=== PATIENT | male | born 1950 | race Caucasian/White ===

== ENCOUNTER 2016-08-19 15:53 | Emergency (ER) | payer MEDICARE, OTHER ==
[2016-08-19] MEDS ORDERED: guaiFENesin/CODEINE 5 ML UDC PO STA (16:36)
[2016-08-19] MEDS ORDERED: ALBUTEROL NEB 2.5 MG/3 ML INH STA (16:36)
[2016-08-19] MEDS ORDERED: guaiFENesin/CODEINE 5 ML UDC ONE (16:39)
[2016-08-19] MEDS ORDERED: ALBUTEROL NEB 2.5 MG/3 ML INH ONE (16:47)
== END 2016-08-19 17:14 | disposition home or self-care (01) ==
DX: J06.9 Acute upper respiratory infection, unspecified (principal); B97.89 Other viral agents as the cause of diseases classified elsewhere; R03.0 Elevated blood-pressure reading, without diagnosis of hypertension; G47.30 Sleep apnea, unspecified; Z79.82 Long term (current) use of aspirin; Z87.891 Personal history of nicotine dependence
CPT/HCPCS: 71020; 94640; 99283; A9270; J7613

== ENCOUNTER 2017-03-03 12:51 | Day surgery (SDC) | payer MEDICARE, OTHER ==
--- NOTE | 2017-03-03 08:30 | SURGERY HX AND PHYSICAL(T) ---
Surgical History & Physical - PMH/PSH/Social Hx Does the pt have a hx of MRSA?: No Neurological History: None Eyes, Ears, Nose, Throat: Other Cardiovascular: Atrial fibrillation, Arrhythmia Respiratory: Pneumonia, Sleep apnea, CPAP use Skin: None Endocrine/Autoimmune: None Gastrointestinal: GERD, Other Urinary: Benign prostate hypertrophy Musculoskeletal: None Blood Disorders: None Psychiatric: Depression, Post traumatic stress disorder, Claustrophobia General: Bowel surgery, Colonoscopy, Other Cardiothoracic: Other Smoking Status: Former smoker Does the pt drink ETOH?: No Does the pt have substance abuse?: No - Home Meds and Allergies Home Medications: Aspirin 81 mg ORAL DAILY 10/04/13 Esomeprazole [NexIUM] 40 mg ORAL DAILY 08/19/16 diltiaZEM [Cardizem] 180 mg ORAL DAILY 08/19/16 raNITIdine [Zantac] 150 mg ORAL DAILY 08/19/16 Allergies/Adverse Reactions: Allergies Allergy/AdvReac Type Severity Reaction Status Date / Time metoclopramide HCl * Allergy Severe Hallucinati Verified 08/19/16 15:55 [From Reglan] ons - Vital Signs Height: 1.83 m - Patient Review Patient Review: Problems were reviewed with the patient during this visit. Medications were reviewed with the patient during this visit. Allergies were reviewed this patient during this visit. Pertinent Tests Reviewed: All pertitent test for this patient were reviewed. - Assessment & Plan Assessment and Plan: This patient was initially seen on January 02 for the exact same reasons. Because more than 30 days were allowed to elapse between the time of the history and physical on the time of the procedure this update history and physical/repeat history and physical are mandated. The following narrative was reviewed with the patient verbatim and there are no substantive changes. The [facility] sends this very pleasant 66 year-old male to my office in consultation for the aforementioned reasons. He describes his bowel movements as regular and normal. He denies nausea, vomiting, constipation, diarrhea, melena, hematochezia, hematemesis, unexplained weight loss, or change in the color, character or caliber of his stool. He denies dysphagia, odynophagia, dysphasia, or GERD. He had a colon resection in 1998 for colon cancer in his previous EGD and colonoscopy was in July 2007. An antral polyp and a small bowel polyp were both resected but I do not have the pathology report. The abdominal pain that the patient's been having is been hard to characterize and is not related to any one thing. (Position, diet, bowel movements). Allergies: REGLAN (Critical) Current Meds: GOLYTELY 236 GM ORAL SOLR (PEG [id number]) Take as directed, by surgery clinic FLOMAX 0.4 MG CAPS (TAMSULOSIN HCL) Take one capsule by mouth daily OMEPRAZOLE 20 MG CPDR (OMEPRAZOLE) Take one capsule by mouth daily RANITIDINE HCL 150 MG TABS (RANITIDINE HCL) take one tablet by mouth every evening LORATADINE 10 MG TABS (LORATADINE) Take one tablet by mouth daily as needed for allergies ASPIRIN EC 81 MG TBEC (ASPIRIN) Take one tablet by mouth daily ATORVASTATIN CALCIUM 40 MG ORAL TABS (ATORVASTATIN CALCIUM) Take 1 tab by mouth daily DILTIAZEM HCL ER BEADS 180 MG CP24 (DILTIAZEM HCL ER BEADS) Take one capsule by mouth daily Past Medical History: Irregular heartbeat sleep apnea/CPAP use Freguent indigestion heartburn Acid Reflux Hiatal Hernia Depression Anxiety Panic Attacks Claustrophobia Past Surgical History: Colon Resection 1998 Family History Summary: Mother (gaston.) - Has Family History of Heart Disease - Entered On: 01/02/2017 Risk Factors: Smoked Tobacco Use: Former smoker Cigarettes: Yes Year quit: 1977 Years Since Last Quit: 40 Drug use: no Alcohol use: no Exercise: yes Times per week: 3 Type of Exercise: Treadmill Review of Systems CONSTITUTIONAL: No weight loss, fever, chills, weakness or fatigue. HEENT: Eyes: No visual loss, blurred vision, double vision or yellow sclerae. Ears, Nose, Throat: No hearing loss, sneezing, congestion, runny nose or sore throat. SKIN: No rash or itching. CARDIOVASCULAR: No chest pain, chest pressure or chest discomfort. No palpitations or edema. RESPIRATORY: No shortness of breath, cough or sputum. GASTROINTESTINAL: No anorexia, nausea, vomiting or diarrhea. No abdominal pain or blood. GENITOURINARY: No dysuria. No impotence. NEUROLOGICAL: No headache, dizziness, syncope, paralysis, ataxia, numbness or tingling in the extremities. No change in bowel or bladder control. MUSCULOSKELETAL: No muscle, back pain, joint pain or stiffness. HEMATOLOGIC: No anemia, bleeding or bruising. LYMPHATICS: No enlarged nodes. No history of splenectomy. PSYCHIATRIC: No history of depression or anxiety. ENDOCRINOLOGIC: No reports of sweating, cold or heat intolerance. No polyuria or polydipsia. ALLERGIES: No history of asthma, hives, eczema or rhinitis. Physical Exam General: 66-year old male, appears stated age, well developed, well nourished Vitals: Please refer to nurses note. HEENT: Normocephalic, atraumatic, extraocular movement intact, mucous membranes pink and moist, sclera anicteric and not injected Neck: Supple without pain on palpation, mass or bruit Cardiac: Regular rate and rhythm without rub, gallop, or murmur Chest: Clear to auscultation bilaterally Abdomen: Soft, nontender, normoactive bowel sounds, no hepatomegaly, no splenomegaly, wound healed nicely without evidence of herniation Genitourinary: Deferred Rectal: Deferred until colonoscopy Extremities: No gross neurovascular problem, no clubbing, cyanosis or edema Gait: Not evaluated. Psychiatric: Alert and oriented to person place and time, asks and answers questions appropriately, mood and affect appropriate Impression & Recommendations: Esophagogastroduodenoscopy with possible biopsies and/or polypectomies and screening colonoscopy with possible biopsies and/or polypectomies. Indications , procedure, alternatives (such as barium enema, Cologuard and even no procedure at all) and risks including but not limited to perforation requiring operative repair, bleeding with its risks, and were fully explained to him. In the office, I epi diagrams explaining the colonic anatomy and the proposed procedure and handed it to him. In the office, conscious sedation was discussed at length with him as were its risks including but not limited to loss of airway, aspiration, respiratory depression, and not enough relief of pain and anxiety and he indicated that he wished to have conscious sedation for his procedure. In the office, I explained that MAC anesthesia is associated with a higher incidence of colon perforation. Review of his history does not reveal any significant systemic disease that would contraindicate use of conscious sedation or MAC anesthesia. All questions were fully answered. Verbal and written consent was obtained. The patient in preparation for his colonoscopy has been n.p.o. and his colon has been mechanically prepped. 20 minutes of [id number] time spent with the patient the majority of which was spent in discussion and in the generation of this document
[2017-03-03] MEDS ORDERED: LACTATED RINGERS 1,000 ML IV ONE (13:26)
[2017-03-03] MEDS ORDERED: fentaNYL 100 MCG/2 ML VIAL IVP ONE (13:55)
[2017-03-03] MEDS ORDERED: MIDAZOLAM 2 MG/2 ML VIAL IVP ONE (13:55)
[2017-03-03] MEDS ORDERED: LIDO GARGLE 30 ML BOTTLE PO ONE (14:05)
[2017-03-03] MEDS ORDERED: BENZOCAINE/TETRACAINE/BUTAMBEN SPRAY 56 GM TOP ONE (14:05)
[2017-03-03 15:22] VITALS: BP 106/65
== END 2017-03-03 12:52 | disposition home or self-care (01) ==
LOC: SDS 12:51
PROVIDERS: ATTEND Surgery
PROC: 0DJD8ZZ Inspection of Lower Intestinal Tract, Via Natural or Artificial Opening Endoscopic (ICD-10-PCS; principal; 2017-03-03 14:00)
PROC: 0DJ08ZZ Inspection of Upper Intestinal Tract, Via Natural or Artificial Opening Endoscopic (ICD-10-PCS; 2017-03-03 14:00)
DX: Z85.038 Personal history of other malignant neoplasm of large intestine (principal); K64.8 Other hemorrhoids; G47.30 Sleep apnea, unspecified; Z79.82 Long term (current) use of aspirin; I48.91 Unspecified atrial fibrillation; K21.9 Gastro-esophageal reflux disease without esophagitis; Z87.891 Personal history of nicotine dependence; Z90.49 Acquired absence of other specified parts of digestive tract; Z82.49 Family history of ischemic heart disease and other diseases of the circulatory system
CPT/HCPCS: 43235; 45378; A9270; J7120

== ENCOUNTER 2018-11-12 16:17 | Outpatient (CLI) | payer MEDICARE, OTHER ==
--- NOTE | 2018-11-13 10:24 | MRI Report ---
Reason: PAIN IN RIGHT FOOT Procedure Date: 11/12/2018 Accession Number: [id number] / [id number] Procedure: MRI - Ankle RT W/O CPT Code: FULL RESULT: EXAM: RIGHT ANKLE/HINDFOOT MRI WITHOUT CONTRAST EXAM DATE: 11/12/2018 06:03 PM. CLINICAL HISTORY: Pain in right foot. COMPARISON: None. TECHNIQUE: Multiplanar, multisequence T1-weighted and fluid-sensitive sequences of the ankle/hindfoot without contrast. Other: None. FINDINGS: Bones and articular surfaces: Old healed fracture of the distal fibula. Small ankle joint effusion. There are parallel perfectly linear cartilage defects running from anterior to posterior at the superior aspect of the tibiotalar joint. More pronounced cartilage thinning with subchondral edema at the anteromedial aspect of the medial tibial plafond. Focal subchondral edema at the lateral dome of the talus. Small amount of subchondral edema at the lateral malleolus anteriorly. Pronounced subchondral edema and subchondral cyst formation at the proximal aspect of the fourth metatarsal and at the distal aspect of the middle cuneiform at the second and fourth tarsometatarsal articulations. Mild subchondral marrow changes at the navicular medial cuneiform articulation as well as the cuboid articulation with the fifth metatarsal. Musculotendinous structures: The Achilles tendon and plantar fascia appear intact. Small volume of fluid associated with the flexor hallucis longus tendon. Mild thickening and increased signal involving the tibialis posterior. Remaining anterior, posterior and posterior lateral ankle tendons appear intact. No significant muscle atrophy or fatty replacement. Ligaments: The anterior and posterior talofibular, calcaneofibular and deltoid ligaments appear intact. IMPRESSION: 1. 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 2. Small ankle joint effusion. 3. Mild tibialis posterior tendinosis. 4. Mild flexor hallucis longus tenosynovitis. 5. Parallel straight linear cartilage defect in the weightbearing tibiotalar joint. Correlate with any previous surgery. RADIA
== END 2018-11-12 16:18 | disposition home or self-care (01) ==
LOC: DI 16:17
PROVIDERS: ATTEND Family Medicine
DX: M19.071 Primary osteoarthritis, right ankle and foot (principal); M25.471 Effusion, right ankle; M65.871 Other synovitis and tenosynovitis, right ankle and foot; M94.8X7 Other specified disorders of cartilage, ankle and foot

== ENCOUNTER 2019-08-03 08:56 | Emergency (ER) | payer MEDICARE, OTHER ==
--- NOTE | 2019-08-03 09:39 | ED Physician Documentation ---
PD HPI UPPER EXT INJURY - Stated complaint Stated Complaint: R WRIST INJ - Chief complaint Chief Complaint: Trauma Ext - History obtained from History obtained from: Patient - History of Present Illness Location: Right, Wrist Type of injury: Fall Where injury occurred: Home Timing - onset: Today Timing - duration: Hours (5) Timing - details: Abrupt onset Improved by: Immobilization Worsened by: Moving, Palpating Associated symptoms: Swelling. No: Weakness, Numbness, Tingling, Discolored Contributing factors: No: Anticoagulated Recently seen: Not recently seen - Additonal information Additional information: This is a 68-year-old man who presents with complaints he got up to go to the bathroom last night he tripped on the carpet falling forward onto his outstretched right wrist. This was about 4:30 in the morning. He had a pain immediate pain in the wrist but did not want awake anybody else up so he waited until the household was up to come in. He did not do anything for the pain at home. Denies elbow or shoulder pain did not hit his head. He is not on blood thinners. He is right-handed. The patient also is complaining of some burning with urination that started yesterday and he has a history of urinary tract infections in the past. He was started on a prostate medication to help his u rine flow but he does not think he is getting a lot of relief of it. Review of Systems : denies: Dysuria Musculoskeletal: reports: Extremity pain Neurologic: denies: Numbness PD PAST MEDICAL HISTORY - Past Medical History Cardiovascular: Atrial fibrillation, Arrhythmia Respiratory: Pneumonia, Sleep apnea, CPAP use Endocrine/Autoimmune: None GI: GERD, Other : Benign prostate hypertrophy HEENT: Other Psych: Depression, Post traumatic stress disorder, Claustrophobia Musculoskeletal: None Derm: None - Past Surgical History Past Surgical History: Yes General: Bowel surgery, Colonoscopy, Other Cardiovascular: Other - Present Medications Home Medications: Ambulatory Orders Medication Instructions Recorded Confirmed Aspirin 81 mg ORAL DAILY 10/04/13 08/19/16 Esomeprazole [NexIUM] 40 mg ORAL DAILY 08/19/16 08/19/16 diltiaZEM [Cardizem] 180 mg ORAL DAILY 08/19/16 08/19/16 raNITIdine [Zantac] 150 mg ORAL DAILY 08/19/16 08/19/16 - Allergies Allergies/Adverse Reactions: Allergies Allergy/AdvReac Type Severity Reaction Status Date / Time metoclopramide HCl * Allergy Severe Hallucinati Verified 08/03/19 09:11 [From Regzenon] ons - Social History Does the pt smoke?: No Smoking Status: Former smoker Does the pt drink ETOH?: No Does the pt have substance abuse?: No - Immunizations Immunizations are current?: Yes - POLST Patient has POLST: No PD ED PE NORMAL - Vitals Vital signs reviewed: Yes - General General: Alert and oriented X 3, No acute distress, Well developed/nourished - HEENT HEENT: Atraumatic - Derm Derm: Normal color, Warm and dry, No rash - Extremities Extremities: Other (Swelling to the dorsal right wrist. Is limited flexion due to pain. There is tenderness across the dorsal aspect of the wrist but not any specific point tenderness. He is able to make a fist and abduct the pinky and thumb. Sensations intact light touch in the digits and capillary refills less than 2 seconds. He has a 2+ radial pulse.) - Neuro Neuro: No motor deficit, No sensory deficit - Psych Psych: Normal mood, Normal affect Results - Vitals Vitals: Vital Signs - 24 hr 08/03/19 09:11 Temperature 37 C Heart Rate 78 Respiratory 18 Rate Blood Pressure 141/88 H O2 Saturation 98 Oxygen O2 Source Room air - Labs Labs: Laboratory Tests 08/03/19 09:32 Urine Color YELLOW Urine Clarity CLEAR Urine pH 6.5 Ur Specific [place] 1.025 Urine Protein NEGATIVE Urine Glucose (UA) NEGATIVE Urine Ketones NEGATIVE Urine Occult Blood NEGATIVE Urine Nitrite NEGATIVE Urine Bilirubin NEGATIVE Urine Urobilinogen 0.2 (NORMAL) Ur Leukocyte Esterase NEGATIVE Ur Microscopic Review NOT INDICATED Urine Culture Comments NOT INDICATED - Rads (name of study) r wrist Radiology: EMP read indepedently, EMP read contemporaneously (sm calcification noted adjacent to dist radius on lat film only.) PD MEDICAL DECISION MAKING - ED course Complexity details: reviewed results, d/w patient ED course: Urinalysis is negative for any infection and this was discussed with the patient. His imaging was discussed at this time I am not sure if this is a calcification in the ligament are actually a small avulsion fracture that I am seeing on the lateral film. He is placed in a splint for comfort. Instructed to ice the wrist take ibuprofen or Tylenol for pain. Follow-up with his primary care provider for reevaluation in 12 to 14 days particularly if this is not improving. Departure - Departure Disposition: 01 Home, Self Care Clinical Impression: Dysuria Sprain of wrist, right Qualifiers: Encounter type: initial encounter Qualified Code(s): S63.501A - Unspecified sp rain of right wrist, initial encounter Condition: Good Instructions: ED Sprain Wrist, ED Splint Care Velcro Follow-Up: LUIS MANUEL Morrison [Provider Group] STEVE BANUELOS [Primary Care Provider] - Comments: Wear the splint at all times unless you are bathing or washing her hands. Ice and elevate the wrist to help control pain. Take Tylenol or ibuprofen if needed for pain. Follow-up with your primary care provider in 12 to 14 days particularly if this is not improving.
[2019-08-03 09:49] LABS: BILIRUBIN,URINE NEGATIVE (NEGATIVE); GLUCOSE, URINE (UA) NEGATIVE (NEGATIVE); KETONES,URINE (UA) NEGATIVE (NEGATIVE); LEUKOCYTE ESTERASE, URINE NEGATIVE (NEGATIVE); NITRITE,URINE NEGATIVE (NEGATIVE); OCCULT BLOOD,URINE NEGATIVE (NEGATIVE); PH,URINE 6.5 PH (5.0-7.5); PROTEIN,URINE NEGATIVE (NEGATIVE); UROBILINOGEN,URINE 0.2 (NORMAL) E.U./dL (NORMAL)
[2019-08-03 09:50] LABS: CLARITY,URINE CLEAR (CLEAR)
--- NOTE | 2019-08-03 10:05 | XRAY Report ---
Reason: wrist pain Procedure Date: 08/03/2019 Accession Number: [id number] / [id number] Procedure: XR - Wrist 3 View RT CPT Code: Final Report FULL RESULT: EXAM: RIGHT WRIST RADIOGRAPHY EXAM DATE: 08/03/2019 09:40 AM. CLINICAL HISTORY: Wrist pain. Fall onto outstretched hand. COMPARISON: None. TECHNIQUE: 3 views. FINDINGS: Bones: Normal. No fractures or bone lesions. Joints: No subluxation or dislocation. There are mild degenerative changes at the first carpometacarpal joint and first metacarpophalangeal joint. Soft Tissues: Unremarkable. No focal soft tissue swelling appreciated. IMPRESSION: 1. No fracture or other acute osseous abnormality of the wrist. 2. Mild degenerative osteoarthritis at the first carpal metacarpal joint and first metacarpophalangeal joint. RADIA
[2019-08-03 10:17] VITALS: BP 143/85
== END 2019-08-03 10:14 | disposition home or self-care (01) ==
LOC: ED 08:56
DX: S63.501A Unspecified sprain of right wrist, initial encounter (principal); W01.0XXA Fall on same level from slipping, tripping and stumbling without subsequent striking against object, initial encounter; Y93.01 Activity, walking, marching and hiking; Y92.009 Unspecified place in unspecified non-institutional (private) residence as the place of occurrence of the external cause; R30.0 Dysuria; Z87.891 Personal history of nicotine dependence
CPT/HCPCS: 81001; 81003; 87086; 99284

== ENCOUNTER 2020-09-13 01:43 | Emergency (ER) | payer MEDICARE, OTHER ==
--- NOTE | 2020-09-13 01:57 | ED Physician Documentation ---
PD HPI MALE - Stated complaint Stated Complaint: MALE , UPPER L LEG PX - Chief complaint Chief Complaint: General - History obtained from History obtained from: Patient - History of Present Illness Timing - onset: How many weeks ago (2) Timing - duration: Weeks (2) Timing - details: Gradual onset (onset of lower abd pain and cramps with dysuria 2 weeks ago. Rx with abx (sounds like Bactrim) and not improved. CHanged to CIpro. LEss dysuria, but still pelvic/lower abd pains. Having pain radiate to left thigh now too. No scrotal swelling.), Still present, Waxing and waning Associated symptoms: Dysuria, Urinary frequency, Abdominal pain. No: Hematuria, Discharge, Genital sore / lesion, Testiclar pain, Scrotal swelling PD HPI MALE CONTRIB FACTORS: No: Sexually active, Exposed to STD Similar symptoms before: Has not had sx before Recently seen: Clinic (Rx ? Bactrim for UTI, then change to Cipro, and now just started AUgmentin 2 days ago.) Review of Systems Constitutional: denies: Fever, Chills Nose: denies: Rhinorrhea / runny nose, Congestion Throat: denies: Sore throat Respiratory: denies: Cough GI: reports: Abdominal Pain. denies: Nausea, Vomiting, Diarrhea : denies: Dysuria, Frequency, Discharge Skin: denies: Rash, Lesions Neurologic: denies: Generalized weakness, Near syncope PD PAST MEDICAL HISTORY - Past Medical History Cardiovascular: Atrial fibrillation, Arrhythmia Respiratory: Pneumonia, Sleep apnea, CPAP use Endocrine/Autoimmune: None GI: GERD, Other : Benign prostate hypertrophy HEENT: Other Psych: Depression, Post traumatic stress disorder, Claustrophobia Musculoskeletal: None Derm: None - Past Surgical History Past Surgical History: Yes General: Bowel surgery, Colonoscopy, Other Cardiovascular: Other - Present Medications Home Medications: Ambulatory Orders Medication Instructions Recorded Confirmed Aspirin 81 mg ORAL DAILY 10/04/13 09/13/20 Esomeprazole [NexIUM] 40 mg ORAL DAILY 08/19/16 09/13/20 diltiaZEM [Cardizem] 180 mg ORAL DAILY 08/19/16 09/13/20 raNITIdine [Zantac] 150 mg ORAL DAILY 08/19/16 09/13/20 DULoxetine [Cymbalta] 30 mg PO DAILY 09/13/20 09/13/20 Naproxen Sodium [Anaprox Ds] 550 mg PO BID #20 tab 09/13/20 Oxycodone HCl/Acetaminophen 1 each PO Q6H PRN #15 tab 09/13/20 [Percocet 5-325 mg Tablet] - Allergies Allergies/Adverse Reactions: Allergies Allergy/AdvReac Type Severity Reaction Status Date / Time metoclopramide HCl * Allergy Severe Hallucinati Verified 08/03/19 09:11 [From Reglan] ons - Social History Does the pt smoke?: No Smoking Status: Former smoker Does the pt drink ETOH?: No Does the pt have substance abuse?: No - Immunizations Immunizations are current?: Yes - POLST Patient has POLST: No PD ED PE NORMAL - Vitals Vital signs reviewed: Yes - General General: Alert and oriented X 3, No acute distress, Well developed/nourished - Neck Neck: Supple, no meningeal sign, No adenopathy - Cardiac Cardiac: RRR, No murmur - Respiratory Respiratory: Clear bilaterally - Abdomen Abdomen: Normal bowel sounds, Soft, Non distended, No organomegaly, Other (some tender without guarding in suprapubic and LLQ area. Not tender to palpation left thigh. NO rash nor sores inguinal nor thigh. ) - Male Male : Other (some scrotal tenderness left epididymis without deformity. No testicular tenderness. No hernia felt. ) - Rectal Rectal: Deferred - Back Back: No CVA TTP - Derm Derm: Normal color, Warm and dry, No rash Results - Vitals Vitals: Oxygen O2 Source Room air - Labs Labs: Laboratory Tests 09/13/20 09/13/20 09/13/20 02:25 02:25 03:37 WBC 5.2 RBC 4.51 L Hgb 14.2 Hct 41.7 L MCV 92.5 MCH 31.5 H MCHC 34.1 RDW 12.5 Plt Count 212 MPV 8.6 Neut # (Auto) 3.4 Lymph # (Auto) 1.1 L [place] # (Auto) 0.6 Eos # (Auto) 0.1 Baso # (Auto) 0.0 Absolute Nucleated RBC 0.00 Nucleated RBC % 0.0 Sodium 141 Potassium 3.8 Chloride 102 Carbon Dioxide 27 Anion Gap 12.0 BUN 13 Creatinine 0.7 Estimated GFR (MDRD) 111 Glucose 112 H Calcium 8.8 Total Bilirubin 1.1 H AST 21 ALT 18 Alkaline Phosphatase 72 Total Protein 7.1 Albumin 3.9 Globulin 3.2 Albumin/Globulin Ratio 1.2 Lipase 25 Urine Color YELLOW Urine Clarity CLEAR Urine pH 7.5 Ur Specific [place] 1.015 Urine Protein NEGATIVE Urine Glucose (UA) NEGATIVE Urine Ketones NEGATIVE Urine Occult Blood NEGATIVE Urine Nitrite NEGATIVE Urine Bilirubin NEGATIVE Urine Urobilinogen 0.2 (NORMAL) Ur Leukocyte Esterase NEGATIVE Ur Microscopic Review NOT INDICATED Urine Culture Comments NOT INDICATED - Rads (name of study) abd CT Radiology: Prelim report reviewed (operative changes right colon and spine. Enlarged prostate. No evidence of diverticulitis. ), See rad report PD MEDICAL DECISION MAKING - ED course Complexity details: reviewed results, re-evaluated patient (seems possible prostatitis. ), considered differential (lower abd pain and some discomfort urination. Being treated for UTI. Still with pain and feeling it goes to inner left thigh. ), d/w patient Departure - Departure Disposition: 01 Home, Self Care Clinical Impression: Lower abdominal pain, Lt inguinal pain Prostatitis Qualifiers: Prostatitis type: unspecified Qualified Code(s): N41.9 - Inflammatory disease of prostate, unspecified Condition: Stable Record reviewed to determine appropriate education?: Yes Follow-Up: Meche Olivares MD [Primary Care Provider] - Prescriptions: Naproxen Sodium [Anaprox Ds] 550 mg PO BID #20 tab Oxycodone HCl/Acetaminophen [Percocet 5-325 mg Tablet] 1 each PO Q6H PRN #15 tab PRN Reason: pain Comments: Continue with your recent antibiotic prescription of amoxicillin/clavulanic acid. Use some probiotics with that so it does not bother your intestines. Add naproxen anti-inflammatory twice daily with food. To that add Tylenol every 4-6 hours or oxycodone if needed for worse pain. Your CT scan and labs do not show any more significant cause for your pain. Specifically no vascular abnormality such as aneurysm nor any signs of diverticulitis, abscess, perforation. There is comment of an enlarged prostate which may be just a normal for you but given your symptoms, the idea of prostatitis makes sense. Recheck if not improving well over the next several days and return if worsening. Discharge Date/Time: 09/13/20 04:28
[2020-09-13] MEDS ORDERED: ONDANSETRON 4 MG/2 ML VIAL IVP STA (02:16)
[2020-09-13] MEDS ORDERED: SODIUM CHLORIDE 0.9% 1,000 ML IV STA (02:16)
[2020-09-13] MEDS ORDERED: HYDROmorphone 1 MG/ML CARPUJECT IVP STA ×2 (02:16→03:58)
[2020-09-13] MEDS ORDERED: KETOROLAC 15 MG/ML VIAL IVP STA (02:16)
[2020-09-13 02:29] LABS: BASOPHILS % (AUTO) 0.6 %; EOSINOPHILS # (AUTO) 0.1 10^3/uL (0.0-0.7); EOSINOPHILS % (AUTO) 1.6 %; HGB - HEMOGLOBIN 14.2 g/dL (14.0-18.0); LYMPHOCYTES # (AUTO) 1.1 10^3/uL (1.5-3.5); LYMPHOCYTES % (AUTO) 21.6 %; MEAN CORPUSCULAR HEMOGLOBIN 31.5 pg (27.0-31.0); MEAN CORPUSCULAR HGB CONC 34.1 g/dL (32.0-36.0); MEAN CORPUSCULAR VOLUME 92.5 fL (80.0-94.0); MEAN PLATELET VOLUME 8.6 fL (7.4-11.4); MONOCYTES # (AUTO) 0.6 10^3/uL (0.0-1.0); MONOCYTES % (AUTO) 10.9 %; NEUTROPHILS # (AUTO) 3.4 10^3/uL (1.5-6.6); NEUTROPHILS % (AUTO) 65.1 %; PLT - PLATELET COUNT 212 10^3/uL (130-450); RED BLOOD COUNT 4.51 10^6/uL (4.70-6.10); RED CELL DISTRIBUTION WIDTH 12.5 % (12.0-15.0); WHITE BLOOD COUNT 5.2 x10^3/uL (4.8-10.8)
[2020-09-13 02:41] LABS: ALBUMIN 3.9 g/dL (3.2-5.5); ALBUMIN/GLOBULIN RATIO 1.2 (1.0-2.2); BILIRUBIN,TOTAL 1.1 mg/dL (0.2-1.0); CALCIUM 8.8 mg/dL (8.5-10.3); CREATININE 0.7 mg/dL (0.6-1.2); TOTAL PROTEIN 7.1 g/dL (6.7-8.2)
[2020-09-13] MEDS ORDERED: IOVERSOL 320 100 ML VIAL IVP ONE ×2 (02:42→03:27)
[2020-09-13] MEDS ORDERED: oxyCODONE/ACET 5/325 Prepack 4 PO STA (03:49)
[2020-09-13] MEDS ORDERED: cefTRIAXone 1 GM VIAL IVP STA (03:49)
[2020-09-13 03:50] LABS: BILIRUBIN,URINE NEGATIVE (NEGATIVE); GLUCOSE, URINE (UA) NEGATIVE (NEGATIVE); KETONES,URINE (UA) NEGATIVE (NEGATIVE); LEUKOCYTE ESTERASE, URINE NEGATIVE (NEGATIVE); NITRITE,URINE NEGATIVE (NEGATIVE); OCCULT BLOOD,URINE NEGATIVE (NEGATIVE); PH,URINE 7.5 PH (5.0-7.5); PROTEIN,URINE NEGATIVE (NEGATIVE); UROBILINOGEN,URINE 0.2 (NORMAL) E.U./dL (NORMAL)
[2020-09-13 03:52] LABS: CLARITY,URINE CLEAR (CLEAR)
[2020-09-13 04:08] VITALS: BP 135/85
== END 2020-09-13 04:28 | disposition home or self-care (01) ==
LOC: ED 01:43
DX: N41.9 Inflammatory disease of prostate, unspecified (principal); N39.0 Urinary tract infection, site not specified; M79.652 Pain in left thigh; N50.82 Scrotal pain; Z87.891 Personal history of nicotine dependence; Z79.82 Long term (current) use of aspirin
CPT/HCPCS: 36415; 74177; 80053; 81003; 83690; 85025; 96361; 96374; 96375; 96376; 99284; J1170; Q9967; 81001; 87086

== ENCOUNTER 2020-10-19 10:27 | Emergency (ER) | payer MEDICARE, OTHER ==
--- NOTE | 2020-10-19 10:43 | ED Physician Documentation ---
PD HPI FOCAL NEURO - Stated complaint Stated Complaint: STROKE LIKE SYMPTOMS - History obtained from History obtained from: Patient - Additional information Additional information: 69-year-old gentleman with history of A. fib status post ablation. Not anticoagulated except for aspirin. At 10 AM he noted numbness starting in the right hand then progressing up the arm and involved to the face and right leg. All of his symptoms are on the right. He has weakness in the right leg as well which is making it hard to walk. No headache. Review of Systems Ten Systems: 10 systems reviewed and negative Constitutional: reports: Reviewed and negative Throat: reports: Reviewed and negative Cardiac: reports: Reviewed and negative Respiratory: reports: Reviewed and negative PD PAST MEDICAL HISTORY - Past Medical History Cardiovascular: Atrial fibrillation, Arrhythmia Respiratory: Pneumonia, Sleep apnea, CPAP use Endocrine/Autoimmune: None GI: GERD, Other : Benign prostate hypertrophy HEENT: Other Psych: Depression, Post traumatic stress disorder, Claustrophobia Musculoskeletal: None Derm: None - Past Surgical History Past Surgical History: Yes General: Bowel surgery, Colonoscopy, Other Cardiovascular: Other - Present Medications Home Medications: Ambulatory Orders Medication Instructions Recorded Confirmed Aspirin 81 mg ORAL DAILY 10/04/13 10/19/20 diltiaZEM [Cardizem] 180 mg ORAL DAILY 08/19/16 10/19/20 Atorvastatin [Lipitor] 40 mg PO DAILY 10/19/20 10/19/20 Finasteride [Proscar] 1 tab PO DAILY 10/19/20 10/19/20 Tamsulosin [Flomax] 1 tab PO DAILY 10/19/20 10/19/20 - Allergies Allergies/Adverse Reactions: Allergies Allergy/AdvReac Type Severity Reaction Status Date / Time metoclopramide HCl * Allergy Severe Hallucinati Verified 10/19/20 10:44 [From Reglan] ons - Social History Does the pt smoke?: No Smoking Status: Former smoker Does the pt drink ETOH?: No Does the pt have substance abuse?: No - Immunizations Immunizations are current?: Yes - POLST Patient has POLST: No PD ED PE NORMAL - Vitals Vital signs reviewed: Yes - General General: Alert and oriented X 3, No acute distress - HEENT HEENT: PERRL, EOMI - Neck Neck: Supple, no meningeal sign, No bony TTP - Cardiac Cardiac: RRR, No murmur - Respiratory Respiratory: No respiratory distress, Clear bilaterally - Abdomen Abdomen: Soft, Non tender - Back Back: No CVA TTP, No spinal TTP - Derm Derm: Normal color, Warm and dry - Extremities Extremities: No edema, No calf tenderness / cord - Neuro Neuro: Alert and oriented X 3, Normal speech NIHSS - Time Time: 10:38 - Level of Consciousness Level of consciousness: (0) Alert, Keenly responsive LOC Questions: (0) Answers both Q's correct LOC Commands: (0) Performs both correctly - Gaze Best Gaze: (0) Normal - Visual Visual: (0) No loss - Facial Palsy Facial Palsy: (0) Normal, symmetrical movement - Motor Arms (both separate) Motor Arm (right): (0) No drift Motor Arm (left): (0) No drift - Motor Legs (both separate) Motor Leg (right): (1) Drift Motor Leg (left): (0) No drift - Limb Ataxia Limb Ataxia: (0) Absent - Sensory Sensory: (1) Vnyx-ee-ernchkgm loss (R leg > R arm) - Best Language Best Language: (0) No aphasia - Dysarthria Dysarthria: (0) Normal - Extinction and Inattention (formally neg Extinction and inattention: (0) No abnormality - Total Score/Results Total Score/Result: 2 Results - Vitals Vitals: Vital Signs - 24 hr 10/19/20 10/19/20 10/19/20 10:38 11:12 11:21 Temperature 36.0 C L Heart Rate 96 92 Respiratory 20 18 14 Rate Blood Pressure 166/104 H 163/80 H O2 Saturation 99 97 10/19/20 10/19/20 10/19/20 11:25 11:33 12:40 Temperature Heart Rate 85 88 86 Respiratory 16 18 Rate Blood Pressure 154/97 H 136/87 H O2 Saturation 96 98 10/19/20 13:13 Temperature Heart Rate 71 Respiratory 17 Rate Blood Pressure 135/80 H O2 Saturation 99 Oxygen O2 Source Room air - EKG (time done) 1100 Rate: Rate (enter#) (88) Rhythm: NSR [place]: LAD Intervals: Normal [place] QRS: Low voltage Ischemia: Non specific changes. No: ST elevation c/w ischemia, ST depression - Labs Labs: Laboratory Tests 10/19/20 10/19/20 10/19/20 10:42 10:42 11:55 WBC 6.6 RBC 4.71 Hgb 15.0 Hct 43.8 MCV 93.0 MCH 31.8 H MCHC 34.2 RDW 13.2 Plt Count 186 MPV 9.0 Neut # (Auto) 4.7 Lymph # (Auto) 1.3 L [place] # (Auto) 0.6 Eos # (Auto) 0.1 Baso # (Auto) 0.0 Absolute Nucleated RBC 0.00 Nucleated RBC % 0.0 PT 12.6 INR 1.1 Sodium 138 Potassium 3.5 Chloride 99 L Carbon Dioxide 24 Anion Gap 15.0 H BUN 18 Creatinine 0.8 Estimated GFR (MDRD) 95 Glucose 111 H Calcium 9.6 Total Bilirubin 1.5 H AST 27 ALT 24 Alkaline Phosphatase 79 Total Protein 7.6 Albumin 4.0 Globulin 3.6 Albumin/Globulin Ratio 1.1 - Rads (name of study) CT Head/ CTA Head and Neck Radiology: EMP read contemporaneously (no ICH, no stenosis) PD MEDICAL DECISION MAKING - ED course ED course: 69-year-old gentleman presents with acute stroke symptoms with right-sided deficits. NIH stroke scale 2 on arrival and telestroke was activated. Seen by Dr. Dent, he had rapidly improving symptoms and on her examination only had minimal numbness of the right leg only and his weakness in the the right leg had resolved. As such she did not recommend TPA but serial exams. NB He had epidural injection in L Spine 3/5. His numbness on the RUE/R face did get worse about 1230pm, spoke with telestroke again, they do not recommend tPA still. They did recommend loading him with 300 mg of Plavix and this was done. Subsequently his numbness went away again. Unfortunately we do not have functioning MRI right now and I clarified with the stroke neurologist that she recommends that he should have MRI during this visit as the size of any infarct area would guide when to start systemic anticoagulation. As such we called [facility] for transfer. Accepted to [facility] by their hospitalist, Dr. Chang Tovar at 1:08 PM and cobras were completed. Departure - Departure Disposition: 02 Transfer Acute Care Hosp Clinical Impression: Cerebrovascular accident (CVA) Qualifiers: CVA mechanism: unspecified Qualified Code(s): I63.9 - Cerebral infarction, unspecified Condition: Serious
[2020-10-19 10:57] LABS: BASOPHILS % (AUTO) 0.2 %; EOSINOPHILS # (AUTO) 0.1 10^3/uL (0.0-0.7); EOSINOPHILS % (AUTO) 0.9 %; HCT - HEMATOCRIT 43.8 % (42.0-52.0); LYMPHOCYTES # (AUTO) 1.3 10^3/uL (1.5-3.5); LYMPHOCYTES % (AUTO) 19.9 %; MEAN CORPUSCULAR HEMOGLOBIN 31.8 pg (27.0-31.0); MEAN CORPUSCULAR HGB CONC 34.2 g/dL (32.0-36.0); MONOCYTES # (AUTO) 0.6 10^3/uL (0.0-1.0); MONOCYTES % (AUTO) 8.6 %; NEUTROPHILS # (AUTO) 4.7 10^3/uL (1.5-6.6); NEUTROPHILS % (AUTO) 70.1 %; PLT - PLATELET COUNT 186 10^3/uL (130-450); RED BLOOD COUNT 4.71 10^6/uL (4.70-6.10); RED CELL DISTRIBUTION WIDTH 13.2 % (12.0-15.0); WHITE BLOOD COUNT 6.6 x10^3/uL (4.8-10.8)
[2020-10-19 11:07] LABS: ALBUMIN/GLOBULIN RATIO 1.1 (1.0-2.2); BILIRUBIN,TOTAL 1.5 mg/dL (0.2-1.0); CALCIUM 9.6 mg/dL (8.5-10.3); CREATININE 0.8 mg/dL (0.6-1.2); POTASSIUM 3.5 mmol/L (3.5-5.0); TOTAL PROTEIN 7.6 g/dL (6.7-8.2)
[2020-10-19] MEDS ORDERED: IOVERSOL 320 100 ML VIAL IVP ONE ×2 (11:11→11:33)
--- NOTE | 2020-10-19 11:11 | CT Report ---
PROCEDURE: Head W/O Stroke Protocol INDICATIONS: stroke like symptoms TECHNIQUE: Noncontrast 4.5 mm thick angled axial sections acquired from the foramen magnum to the vertex, with c oronal reformats. For radiation dose reduction, the following was used: automated exposure control, adjustment of mA and/or kV according to patient size. COMPARISON: CTA head and neck 10/19/2020, MRI brain 02/14/2014 FINDINGS: Image quality: Excellent. The ventricular system and cortical sulci demonstrate atrophy, consistent for patient's stated age. There are areas of hypodensity in the periventricular and subcortical white matter. There is no acut e intra or extra-axial fluid collection. No acute hemorrhage, mass lesion or midline shift. Brainst em is unremarkable. Globes are symmetrical. Sinuses are aerated. Osseous structures are intact. IMPRESSION: 1. No acute intracranial process. 2. Moderate atrophy and chronic microvascular ischemic changes. This study fulfills neurological imaging criteria for inclusion or exclusion of acute stroke therapie s based on available published neurological imaging guidelines. Reviewed by: Rose Mary Benavides MD on 10/19/2020 11:10 AM PDT Approved by: Rose Mary Benavides MD on 10/19/2020 11:10 AM PDT Station ID: [id number]
--- NOTE | 2020-10-19 11:23 | CT Report ---
PROCEDURE: ANGIO NECK W INDICATIONS: R sided deficits CONTRAST: IV CONTRAST: Optiray 320 ml: 80 PO CONTRAST: *NO PO CONTRAST TECHNIQUE: After the administration of intravenous contrast, 1.5 mm axial sections acquired from the aortic arch to the [place]. Coronal 3-D maximum intensity projection (MIP) and/or volume rendering ref ormats were then performed. For radiation dose reduction, the following was used: automated exposur e control, adjustment of mA and/or kV according to patient size. COMPARISON: CTA head, CT brain 10/19/2020 FINDINGS: Image quality: Excellent. The origins of the left and right common, internal and external carotid arteries demonstrate no areas of hemodynamically significant stenosis, vascular occlusion or aneurysmal dilation. Origin of the le ft vertebral artery and right vertebral artery demonstrate no areas of hemodynamically significant st enosis, vascular occlusion or aneurysmal dilation. Aortic arch demonstrates conventional anatomy. [place] ited, visualized portions of the subclavian vasculature are unremarkable. There is mild enlargement l ow-attenuation within the right thyroid lobe. IMPRESSION: There are no areas of hemodynamically significant stenosis, vascular occlusion or aneurysmal dilation within the neck vasculature. The estimate of stenosis included in the report of the imaging study was calculated using the NASCET method Reviewed by: Rose Mary Benavides MD on 10/19/2020 11:21 AM PDT Approved by: Rose Mary Benavides MD on 10/19/2020 11:21 AM PDT Station ID: [id number]
--- NOTE | 2020-10-19 11:25 | CT Report ---
PROCEDURE: ANGIO HEAD W/WO INDICATIONS: R sided deficits CONTRAST: IV CONTRAST: Optiray 320 ml: 80 PO CONTRAST: *NO PO CONTRAST TECHNIQUE: After the administration of intravenous contrast, 1 mm thick sections acquired through the [place] of [place]. Postcontrast 4.5 mm thick sections then re-acquired from the foramen magnum to the vertex. 3-dimensional wpscfly-xoqrhyggu-ofsuirvoso (MIP) and/or volume rendering reformats were acquired of t central intracranial vasculature. For radiation dose reduction, the following was used: automate d exposure control, adjustment of mA and/or kV according to patient size. COMPARISON: CT brain, CTA neck 10/19/2020, MR brain 02/14/2014, CT head 02/13/1940 FINDINGS: Image quality: Excellent. Anterior circulation: Intracranial internal carotid arteries are normal in size and flow. The flow within the paired anterior cerebral arteries is normal and symmetric. The flow within the middle cer ebral arteries is normal and symmetric. The anterior communicating artery is seen. No aneurysms are seen. Vertebral arteries are codominant Posterior circulation: Visualized portions of the vertebral arteries demonstrate normal caliber, and join to form a normal appearing basilar artery. Flow within the posterior cerebral arteries is norm al and symmetric. No aneurysms are seen. IMPRESSION: No areas of hemodynamically significant stenosis, vascular occlusion or aneurysmal dilation within th e anterior circulation. No areas of hemodynamically significant stenosis, vascular occlusion or aneurysmal dilation within th e posterior circulation. Reviewed by: Rose Mary Benavides MD on 10/19/2020 11:23 AM PDT Approved by: Rose Mary Benavides MD on 10/19/2020 11:23 AM PDT Station ID: [id number]
[2020-10-19 12:07] LABS: INR 1.1 (0.8-1.2); PT - PROTHROMBIN TIME 12.6 secs (9.9-12.6)
[2020-10-19] MEDS ORDERED: SODIUM CHLORIDE 0.9% 1,000 ML IV STA (12:35)
[2020-10-19] MEDS ORDERED: CLOPIDOGREL 300 MG TABLET PO STA (12:39)
[2020-10-19 13:14] VITALS: BP 135/80
[2020-10-19 14:42] LABS: CORONAVIRUS 229E-RESP PCR NOT DETECTED; CORONAVIRUS HKU1-RESP PCR NOT DETECTED; CORONAVIRUS NL63-RESP PCR NOT DETECTED; CORONAVIRUS OC43-RESP PCR NOT DETECTED; HUMAN METAPNEUMOVIRUS NOT DETECTED; INFLUENZA A- RESP PCR PANEL NOT DETECTED; RHINOVIRUS/ENTEROVIRUS NOT DETECTED; SARS-CoV-2 -RESP PCR PANEL NOT DETECTED
[2020-10-19 14:43] LABS: B. PARAPERTUSSIS- RESP PCR PAN NOT DETECTED; B. PERTUSSIS- RESP PCR PANEL NOT DETECTED; C. PNEUMONIAE- RESP PCR PANEL NOT DETECTED; INFLUENZA B - RESP PCR PANEL NOT DETECTED; M. PNEUMONIAE- RESP PCR PANEL NOT DETECTED; PARAINFLUENZA VIRUS 1 NOT DETECTED; PARAINFLUENZA VIRUS 2 NOT DETECTED; PARAINFLUENZA VIRUS 3 NOT DETECTED; PARAINFLUENZA VIRUS 4 NOT DETECTED; RSV- RESP PCR PANEL NOT DETECTED
== END 2020-10-19 14:32 | disposition short-term general hospital (02) ==
LOC: ED 10:27
DX: I63.9 Cerebral infarction, unspecified (principal); R29.702 NIHSS score 2; I48.91 Unspecified atrial fibrillation; Z79.82 Long term (current) use of aspirin; Z87.891 Personal history of nicotine dependence; Z20.822 Contact with and (suspected) exposure to COVID-19
CPT/HCPCS: 36415; 70450; 70496; 70498; 80053; 85025; 85610; 87631; 93005; 96360; 96361; 99284; 99285; A9270; Q9967; 0202U

== ENCOUNTER 2020-10-19 15:18 | Outpatient (CLI) | payer MEDICARE, OTHER | END 2020-10-19 15:19 | disposition short-term general hospital (02) | LOC: EMS 15:18 | PROVIDERS: ATTEND Emergency Medicine | DX: Z76.89 Persons encountering health services in other specified circumstances (principal); I36.9 Nonrheumatic tricuspid valve disorder, unspecified | CPT/HCPCS: A0425; A0428 ==

== ENCOUNTER 2022-04-10 07:50 | Day surgery (SDC) | payer MEDICARE, OTHER ==
[~2022-04-10 07:50] MED LIST: LACTATED RINGERS 1,000 ML IV ONE
[2022-04-10] MEDS ORDERED: LACTATED RINGERS 1,000 ML IV ONE (08:05)
--- NOTE | 2022-04-10 09:47 | ANESTHESIA ---
Pre-Anesthesia VS, & Labs - Diagnosis hx of colon ca - Procedure colonoscopy Vital Signs: Temp Pulse Resp BP Pulse Ox 36.3 C L 81 16 143/81 H 96 04/10/22 08:05 04/10/22 08:05 04/10/22 08:05 04/10/22 08:05 04/10/22 08:05 Height: 6 ft Weight (kg): 105 kg Body Mass Index: 31.4 BMI Classification: Obese - NPO >8 hours Home Medications and Allergies Home Medications: Ambulatory Orders Apixaban [Eliquis] 5 mg PO BID 04/05/22 methocarbamoL [Methocarbamol] 500 mg PO ONCE PRN 04/05/22 diltiaZEM [Cardizem] 120 mg ORAL DAILY 08/19/16 Atorvastatin [Lipitor] 40 mg PO DAILY 10/19/20 Finasteride [Proscar] 5 mg PO DAILY 10/19/20 Tamsulosin [Flomax] 0.4 tab PO DAILY 10/19/20 Apixaban [Eliquis] 5 mg PO BID 04/05/22 methocarbamoL [Methocarbamol] 500 mg PO ONCE PRN 04/05/22 Allergies/Adverse Reactions: Allergies Allergy/AdvReac Type Severity Reaction Status Date / Time metoclopramide HCl * Allergy Severe Hallucinati Verified 04/10/22 08:10 [From [facility]] ons Anes History & Medical History - Anesthetic History Anesthesia Complications: reports: No previous complications Family history of Anesthesia Complications: Denies Family history of Malignant Hyperthermia: Denies - Medical History Cardiovascular: reports: Atrial fibrillation, Arrhythmia, Other Pulmonary: reports: Pneumonia, Sleep apnea, CPAP use Gastrointestinal: reports: GERD Urinary: reports: Benign prostate hypertrophy Neuro: reports: CVA Musculoskeletal: reports: Osteoarthritis Endocrine/Autoimmune: reports: None Blood Disorders: reports: None Skin: reports: Rosacea Smoking Status: Former smoker - Surgical History General: reports: Bowel surgery, Colonoscopy, EGD Cardiothoracic: reports: Other Exam General: Alert, Oriented x3, Cooperative Dental: WNL Mouth Openin Fingerbreadth Neck Mobility: Normal Mallampati classification: II Thyromental Distance: 4-6 cm Respiratory: Lungs clear Cardiovascular: Regular rate Plan Anesthesia Type: Total IV Consent for Procedure(s) Verified and Reviewed: Yes Code Status: Attempt Resuscitation ASA classification: 3-Severe systemic disease Is this case an emergency?: No
[2022-04-10] MEDS ORDERED: PROPOFOL 200 MG/20 ML VIAL IVP ONE ×2 (10:02→10:41)
[2022-04-10 11:34] VITALS: BP 127/73
--- NOTE | 2022-04-10 13:26 | ANESTHESIA POST OP EVALUATION ---
Anesthesia Post Eval - Post Anesthesia Eval Vitals: Last Vital Signs Temp 36.2 C L 04/10/22 11:13 Pulse 64 04/10/22 11:13 Resp 16 04/10/22 11:13 BP 127/73 04/10/22 11:13 Pulse Ox 100 04/10/22 11:13 CV Function Including HR & BP: Stable Pain Control: Satisfactory Nausea & Vomiting: Negative Mental Status: Baseline Respiratory Status: Airway Patent Hydration Status: Satisfactory Anesthesia Complications: None
== END 2022-04-10 07:51 | disposition home or self-care (01) ==
LOC: SDS 07:50
PROVIDERS: ATTEND Surgery
PROC: 0DBL8ZZ Excision of Transverse Colon, Via Natural or Artificial Opening Endoscopic (ICD-10-PCS; 2022-04-10)
PROC: 0DBP8ZZ Excision of Rectum, Via Natural or Artificial Opening Endoscopic (ICD-10-PCS; 2022-04-10)
PROC: 0DBK8ZZ Excision of Ascending Colon, Via Natural or Artificial Opening Endoscopic (ICD-10-PCS; principal; 2022-04-10 09:15)
DX: Z12.11 Encounter for screening for malignant neoplasm of colon (principal); D12.3 Benign neoplasm of transverse colon; D12.8 Benign neoplasm of rectum; K63.5 Polyp of colon; K64.8 Other hemorrhoids; G47.30 Sleep apnea, unspecified; E66.9 Obesity, unspecified; Z68.31 Body mass index [BMI] 31.0-31.9, adult; I48.91 Unspecified atrial fibrillation; N40.0 Benign prostatic hyperplasia without lower urinary tract symptoms; Z87.891 Personal history of nicotine dependence; Z85.038 Personal history of other malignant neoplasm of large intestine
CPT/HCPCS: 45385; J7120

== ENCOUNTER 2023-10-16 00:48 | Emergency (ER) | payer MEDICARE, OTHER ==
--- NOTE | 2023-10-16 01:12 | ED Physician Documentation ---
PD HPI CHEST PAIN - Stated complaint Stated Complaint: CHEST PX - Chief complaint Chief Complaint: Cardiac - History obtained from History obtained from: Patient - Additional information Additional information: 72-year-old man with family history of [place], personal history of A-fib on Eliquis and diltiazem, hyperlipidemia, presents with chest pressure starting at 11:15 PM last night, persisting until arrival to the emergency department and then resolving. Patient states this feels like prior GERD episodes. Denies nausea, diaphoresis, dizziness, shortness of breath, cough, fever. Denies leg swelling, hemoptysis PD PAST MEDICAL HISTORY - Past Medical History Past Medical History: Yes Cardiovascular: Atrial fibrillation, Arrhythmia, Other Respiratory: Pneumonia, Sleep apnea, CPAP use Neuro: CVA Endocrine/Autoimmune: None GI: GERD : Benign prostate hypertrophy HEENT: Chronic vision loss Psych: Depression, Panic attacks, Post traumatic stress disorder, Claustrophobia Musculoskeletal: Osteoarthritis Derm: Rosacea - Past Surgical History Past Surgical History: Yes General: Bowel surgery, Colonoscopy, EGD Cardiovascular: Other - Present Medications Home Medications: Ambulatory Orders Medication Instructions Recorded Confirmed diltiaZEM [Cardizem] 120 mg ORAL DAILY 08/19/16 04/05/22 Atorvastatin [Lipitor] 40 mg PO DAILY 10/19/20 04/05/22 Finasteride [Proscar] 5 mg PO DAILY 10/19/20 04/05/22 Tamsulosin [Flomax] 0.4 tab PO DAILY 10/19/20 04/05/22 Apixaban [Eliquis] 5 mg PO BID 04/05/22 04/05/22 methocarbamoL [Methocarbamol] 500 mg PO ONCE PRN 04/05/22 04/05/22 - Allergies Allergies/Adverse Reactions: Allergies Allergy/AdvReac Type Severity Reaction Status Date / Time metoclopramide HCl * Allergy Severe Hallucinati Verified 10/16/23 01:04 [From Reglan] ons - Social History Does the pt smoke?: No Smoking Status: Never smoker Does the pt drink ETOH?: No Does the pt have substance abuse?: No - Immunizations Immunizations are current?: Yes - POLST Patient has POLST: No PD ED PE NORMAL - Vitals Vital signs reviewed: Yes - General General: Alert and oriented X 3, No acute distress, Well developed/nourished - HEENT HEENT: Atraumatic, PERRL, EOMI - Neck Neck: Supple, no meningeal sign - Cardiac Cardiac: RRR - Respiratory Respiratory: No respiratory distress, Clear bilaterally - Abdomen Abdomen: Non tender, Non distended Results - Vitals Vitals: Vital Signs - 24 hr 10/16/23 10/16/23 10/16/23 00:50 01:15 02:19 Temperature 36.8 C Heart Rate 78 72 65 Respiratory 13 16 18 Rate Blood Pressure 148/83 H 144/73 H 129/74 O2 Saturation 100 99 97 Oxygen O2 Source Room air - EKG (time done) 0059 EKG releavant findings:: EKG personally interpreted by author of this note. Relevant findings are: Rate: Rate (enter#) (70) Rhythm: NSR [place]: LAD Intervals: Normal [place] QRS: Normal Ischemia: Normal ST segments - Labs Labs: Laboratory Tests 10/16/23 10/16/23 10/16/23 01:10 01:10 02:46 WBC 4.9 RBC 4.26 L Hgb 13.8 L Hct 39.8 L MCV 93.4 MCH 32.4 H MCHC 34.7 RDW 12.5 Plt Count 181 MPV 9.3 Neut # (Auto) 2.7 Lymph # (Auto) 1.5 [place] # (Auto) 0.6 Eos # (Auto) 0.2 Baso # (Auto) 0.0 Absolute Nucleated RBC 0.00 Nucleated RBC % 0.0 Sodium 139 Potassium 3.8 Chloride 106 Carbon Dioxide 27 Anion Gap 6.0 BUN 18 Creatinine 0.9 Estimated GFR (MDRD) 82 L Glucose 95 Calcium 9.0 Total Bilirubin 0.8 AST 17 ALT 15 Alkaline Phosphatase 60 Troponin I High Sens 2.6 3.0 Total Protein 6.7 Albumin 3.9 Globulin 2.8 Albumin/Globulin Ratio 1.4 Lipase 19 PD Medical Decision Making - ED course ED course: 72-year-old man with history of A-fib, hyperlipidemia, family history of [place] presents with chest pressure this past evening, self resolving. CBC, abdominal panel, troponin, EKG, chest x-ray ordered. Lab work, EKG, chest x-ray without any acute findings. Patient requested GI cocktail and it was provided with complete relief of symptoms. Second troponin ordered and negative. plan is to follow-up outpatient with his primary care provider and return precautions given. Departure - Departure Disposition: Home, Self Care Clinical Impression: Chest pain Instructions: ED Chest Pain Atypical Unkn Cause Comments: You were seen in the emergency department for Chest pain. Your lab work, EKG, and chest x-ray uncovered no emergent issues however he will need to follow-up with your primary care provider and likely your radio officer. Please return to the emergency department if you have any new or worsening symptoms or other concerns. Forms: PCP List
[2023-10-16] MEDS: ASPIRIN 325 MG TABLET PO STA (01:23)
[2023-10-16 01:30] LABS: BASOPHILS % (AUTO) 0.8 %; EOSINOPHILS # (AUTO) 0.2 10^3/uL (0.0-0.7); HCT - HEMATOCRIT 39.8 % (42.0-52.0); HGB - HEMOGLOBIN 13.8 g/dL (14.0-18.0); LYMPHOCYTES # (AUTO) 1.5 10^3/uL (1.5-3.5); LYMPHOCYTES % (AUTO) 29.6 %; MEAN CORPUSCULAR HEMOGLOBIN 32.4 pg (27.0-31.0); MEAN CORPUSCULAR HGB CONC 34.7 g/dL (32.0-36.0); MEAN CORPUSCULAR VOLUME 93.4 fL (80.0-94.0); MEAN PLATELET VOLUME 9.3 fL (7.4-11.4); MONOCYTES # (AUTO) 0.6 10^3/uL (0.0-1.0); MONOCYTES % (AUTO) 11.5 %; NEUTROPHILS # (AUTO) 2.7 10^3/uL (1.5-6.6); NEUTROPHILS % (AUTO) 54.9 %; PLT - PLATELET COUNT 181 10^3/uL (130-450); RED BLOOD COUNT 4.26 10^6/uL (4.70-6.10); RED CELL DISTRIBUTION WIDTH 12.5 % (12.0-15.0); WHITE BLOOD COUNT 4.9 x10^3/uL (4.8-10.8)
--- NOTE | 2023-10-16 01:38 | XRAY Report ---
PROCEDURE: Chest 1V INDICATIONS: Chest Pain TECHNIQUE: One view of the chest was acquired. COMPARISON: Chest radiograph 08/19/2016. FINDINGS: Surgical changes and devices: None. Lungs and pleura: No pleural effusions or pneumothorax. Lungs are clear. Mediastinum: Mediastinal contours appear normal. Heart size is normal. Bones and chest wall: No suspicious bony lesions. Overlying soft tissues appear unremarkable. IMPRESSION: No acute cardiopulmonary process. Reviewed by: Tez Saeed MD on 10/16/2023 1:37 AM PDT Approved by: Tez Saeed MD on 10/16/2023 1:37 AM PDT Station ID: [id number]
[2023-10-16 01:40] LABS: ALBUMIN 3.9 g/dL (3.2-5.5); ALBUMIN/GLOBULIN RATIO 1.4 (1.0-2.2); BILIRUBIN,TOTAL 0.8 mg/dL (0.2-1.0); POTASSIUM 3.8 mmol/L (3.5-4.5); TOTAL PROTEIN 6.7 g/dL (6.4-8.9)
[2023-10-16 01:42] LABS: TROPONIN I HIGH SENSITIVITY 2.6 ng/L (2.3-19.7)
[2023-10-16 02:03] LABS: CREATININE 0.9 mg/dL (0.6-1.3)
[2023-10-16 02:28] VITALS: BP 129/74; O2SAT 97
[2023-10-16] MEDS: MAG HYDROX/AL HYDROX/SIMETH 30 ML UDC PO STA (03:32)
[2023-10-16] MEDS: diphenhydrAMINE ELIXIR 25 MG/10 ML UDC PO STA (03:32)
[2023-10-16] MEDS: LIDOCAINE VISCOUS 2% 15 ML ORAL SYRINGE MM STA (03:34)
== END 2023-10-16 04:08 | disposition home or self-care (01) ==
LOC: ED 00:48
DX: R07.89 Other chest pain (principal); I48.91 Unspecified atrial fibrillation; Z79.01 Long term (current) use of anticoagulants; G47.33 Obstructive sleep apnea (adult) (pediatric); N40.0 Benign prostatic hyperplasia without lower urinary tract symptoms; Z86.73 Personal history of transient ischemic attack (TIA), and cerebral infarction without residual deficits; E78.5 Hyperlipidemia, unspecified
CPT/HCPCS: 36415; 71045; 80053; 83690; 84484; 85025; 93005; 99284; A9270